=== PATIENT | male | born 1995 | race Hispanic/Latino ===

== ENCOUNTER 2023-09-30 06:17 | Emergency (ER) | payer SELFPAY ==
[~2023-09-30] VITALS: Ht 170.2 cm; Wt 86.0 kg
[2023-09-30 06:31] VITALS: BP 122/67
[2023-09-30 06:40] VITALS: BP 105/69
[2023-09-30 06:44] LABS: BASO% 0.5 % (0-3); EOS% 1.1 % (0-8); HEMATOCRIT 43.9 % (39.0-50.0); HEMOGLOBIN 14.5 g/dl (14.0-18.0); IMMATURE GRANULOCYTES 0.1 % (0.0-5.0); LYMPH% 20.5 % (15-41); MEAN CORPUSCULAR HGB 30.7 pG CALC (26.0-32.0); MONO% 7.2 % (2-13); NEUT# 5.71 thou/uL (1.82-7.42); NEUT% 70.6 % (42-76); RED BLOOD COUNT 4.72 mill/uL (4.70-6.10); RED CELL DISTRI WIDTH 11.7 % (11.5-15.5)
[2023-09-30 06:50] VITALS: BP 105/68
[2023-09-30 06:58] LABS: ALBUMIN 4.6 g/dL (3.2-5.0); ALKALINE PHOSPHATASE 53 u/l (38-126); ANION GAP 13 (6-22 (CALC)); BILIRUBIN, TOTAL 0.4 mg/dL (0.2-1.3); BUN 11 mg/dL (9-20); BUN/CREATININE RATIO 16 (12-20 (CALC)); CARBON DIOXIDE 26 mmol/l (22-30); CHLORIDE 106 mmol/l (95-108); CREATININE 0.7 mg/dL (0.7-1.3); GFR FOR AFR.AMER. > 60 ML/MIN (>=60 (CALC)); GFR OTHER RACES > 60 ML/MIN (>=60 (CALC)); LIPASE 59 u/l (23-300); POTASSIUM 3.8 mmol/l (3.5-5.1); SGOT/AST 60 u/l (17-59); SODIUM 142 mmol/l (137-146); TOTAL PROTEIN 7.2 g/dL (6.3-8.2)
[2023-09-30 07:01] VITALS: BP 107/53
[2023-09-30 07:11] VITALS: BP 114/70
[2023-09-30] MEDS ORDERED: OMEPRAZOLE20 MG PO (07:36)
[2023-09-30 08:15] VITALS: BP 114/70
== END 2023-09-30 08:34 | disposition home or self-care (01) | DRG 392 ==
LOC: ED 06:17
PROVIDERS: Family Medicine
DX: R10.13 Epigastric pain (principal); F17.210 Nicotine dependence, cigarettes, uncomplicated
CPT/HCPCS: S0164